=== PATIENT | female | born 1965 | race Caucasian/White ===

== ENCOUNTER 2021-12-28 22:11 | Emergency (ER) | payer SELFPAY ==
[~2021-12-28] VITALS: Ht 162.6 cm; Wt 77.2 kg
[2021-12-29] MEDS ORDERED: KETOROLAC 60MG/2ML VIAL IM ONE (01:15)
[2021-12-29] MEDS ORDERED: ACETAMINOPHEN 325MG TABLET PO ONE (01:15)
[2021-12-29] MEDS: CYCLOBENZAPRINE 10MG TABLET PO SCH ×2 (01:45→02:07)
[2021-12-29] MEDS ORDERED: CYCLOBENZAPRINE 10MG TABLET PO SCH (06:00)
[2021-12-29] MEDS ORDERED: NAPR500T7 MT (06:02)
[2021-12-29] MEDS ORDERED: TOPUD MT (06:02)
[2021-12-29 06:11] VITALS: BP 124/78
== END 2021-12-29 06:10 | disposition home or self-care (01) ==
LOC: ER 22:11
DX: S06.0X0A Concussion without loss of consciousness, initial encounter (principal); S16.1XXA Strain of muscle, fascia and tendon at neck level, initial encounter; S39.012A Strain of muscle, fascia and tendon of lower back, initial encounter; S20.20XA Contusion of thorax, unspecified, initial encounter; Y08.89XA Assault by other specified means, initial encounter; Y93.89 Activity, other specified; Y92.89 Other specified places as the place of occurrence of the external cause; Y99.8 Other external cause status; E11.9 Type 2 diabetes mellitus without complications; I10 Essential (primary) hypertension; Z90.710 Acquired absence of both cervix and uterus
CPT/HCPCS: 70450; 71046; 96372; 99284; J1885